=== PATIENT | male | born 2000 | race Caucasian/White ===

== ENCOUNTER → 2021-04-29 | Outpatient (CLI) | payer OTHER ==
--- NOTE | 2021-04-29 17:20 | KCIC ---
MRI of the lumbar spine without contrast 04/29/2021 CLINICAL HISTORY: Chronic low back pain. TECHNIQUE: Unenhanced T1-weighted and T2-weighted sagittal and axial and inversion recovery sagittal images of the lumbar spine were obtained. FINDINGS: The alignment of the lumbar vertebrae is within normal limits. Degenerative signal changes and loss of height are seen involving the L5-S1 disc. Degenerative signal changes are seen within the marrow surrounding this disc. The conus medullaris is normal morphology, position, and signal charac teristics. The L1-2 and L2-3 disc spaces are within normal limits. At the L3-4 disc space there is a minimal generalized disc bulge. Superimposed on this disc bulge is a focal central disc protrusion. This measures 2 mm in AP diameter. Mild degenerative changes are see n involving the facet joints bilaterally. There are small facet joint effusions bilaterally. These fi ndings do not result in significant central spinal canal or neural foraminal stenosis. At the L4-5 disc space there is a minimal generalized disc bulge. Degenerative changes are seen invol ving the facet joints bilaterally. There is mild ligamentum flavum hypertrophy bilaterally. There are small facet joint effusions bilaterally. These findings do not result in significant central spinal canal or neural foraminal stenosis. At the L5-S1 disc space there is a mild generalized disc bulge. Superimposed on this disc bulge is a focal central disc protrusion. This measures 3 mm in AP diameter. Degenerative changes are seen invol ving the facet joints bilaterally. There are small facet joint effusions bilaterally. These findings do not result in significant central spinal canal or neural foraminal stenosis. IMPRESSION: The changes of degenerative disc disease are seen involving the mid and lower lumbar spin e. These findings do not result in significant central spinal canal or neural foraminal stenosis. Electronically signed by: Paul Jackson MD (04/29/2021 5:17 PM) [id number]
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
== END ==
LOC: KCIC MRI 14:35
PROVIDERS: ATTEND Nurse Practitioner
DX: M47.817 Spondylosis without myelopathy or radiculopathy, lumbosacral region (principal); M51.27 Other intervertebral disc displacement, lumbosacral region; M43.8X5 Other specified deforming dorsopathies, thoracolumbar region; G89.29 Other chronic pain; M54.42 Lumbago with sciatica, left side; Z78.9 Other specified health status; R29.898 Other symptoms and signs involving the musculoskeletal system
CPT/HCPCS: 72072; 72148